=== PATIENT | female | born 1985 | race Caucasian/White ===

== ENCOUNTER 2020-06-07 22:12 | Emergency (ER) | payer OTHER ==
[~2020-06-07] VITALS: Ht 154.9 cm; Wt 68.0 kg
[2020-06-08] MEDS ORDERED: CLINDAMYCIN HC150 MG PO (00:31)
[2020-06-08 01:05] VITALS: BP 146/99
== END 2020-06-08 01:07 | disposition home or self-care (01) ==
LOC: ER 22:12
DX: L03.115 Cellulitis of right lower limb (principal); Z88.1 Allergy status to other antibiotic agents; Z88.8 Allergy status to other drugs, medicaments and biological substances